=== PATIENT | male | born 1950 | race Caucasian/White ===

== ENCOUNTER 2018-07-01 05:47 | Day surgery (SDC) | payer BC ==
[2018-07-01] MEDS ORDERED: LACTATED RINGERS 1,000 ML IV SCH (06:12)
[2018-07-01] MEDS ORDERED: VERSED ONE ×2 (07:29→07:41)
[2018-07-01] MEDS ORDERED: NEURONTIN ONE (07:30)
[2018-07-01] MEDS ORDERED: MARCAINE-EPI 0.25%-1:200,000 INFILTRATI ONE (07:31)
--- NOTE | 2018-07-01 07:38 | Anesthesia Consultation ---
Anesthesia Consult and Med Hx Date of service: 07/01/18 - Airway Anesthetic Teeth Evaluation: Poor ROM Head & Neck: Adequate Mental/Hyoid Distance: Adequate Mallampati Class: Class II Intubation Access Assessment: Probably Good - Pulmonary Exam CTA: Yes - Cardiac Exam Cardiac Exam: RRR - Pre-Operative Health Status ASA Pre-Surgery Classification: ASA2 Proposed Anesthetic Plan: General - Pulmonary Hx Smoking: Yes (FOR 40YRS; QUIT 2009) - Central Nervous System Hx Psychiatric Problems: No - Other Systems Hx Alcohol Use: Yes ([facility]) Hx Substance Use: No Hx Cancer: No
--- NOTE | 2018-07-01 07:39 | Anesthesia Day of Surgery ---
Anesthesia Day of Surgery - Day of Surgery Patient Examined: Yes Patient H&P Reviewed: Yes Patient is NPO: Yes Beta Blockers: No Cardiac Clearance: No Pulmonary Clearance: No Clarence's Test: N/A
[2018-07-01] MEDS ORDERED: MARCAINE 0.5% INFILTRATI ONE (07:40)
[2018-07-01] MEDS ORDERED: TORADOL IV PRN (07:40)
[2018-07-01] MEDS ORDERED: ZOFRAN IV PRN (07:40)
[2018-07-01] MEDS ORDERED: DILAUDID IV PRN (07:40)
[2018-07-01] MEDS ORDERED: ZEMURON IV ONE (07:41)
[2018-07-01] MEDS ORDERED: XYLOCAINE MPF 2% ONE (07:41)
[2018-07-01] MEDS ORDERED: SUBLIMAZE ONE (07:42)
[2018-07-01] MEDS ORDERED: MARCAINE-EPI 0.5%-1:200,000 INFILTRATI ONE ×2 (07:42→08:25)
[2018-07-01] MEDS ORDERED: DIPRIVAN 10 MG/ML IV ONE (07:42)
[2018-07-01] MEDS ORDERED: ANCEF/STERILE WATER 2 GM/20 ML 2 GM/20 ML SYRINGE IV SCH (08:00)
[2018-07-01] MEDS ORDERED: NEURONTIN PO NR (08:00)
[2018-07-01] MEDS ORDERED: VERSED IV NR (08:00)
[2018-07-01] MEDS ORDERED: NACL 0.9% IR ONE (08:25)
--- NOTE | 2018-07-01 09:18 | Discharge Summary ---
Short Stay Discharge Plan Activity: other (observe x 4 hrs then august d/c if stable and able to void. cl liq today. advance to solid high fiber diet at home in am.) Diet: clear liquids Wound: keep clean and dry (x 5 days. scrotal support x 3 days. ice pack L groin x 6 hrs) Additional Instructions: no lifting over 5 lbs x 3 wks. aleve I po q 6-8 hrs prn for breakkthrough pain. surfak I po q am x 3 Follow up with: KENIA COX MD [Staff Physician] - 7 Days
--- NOTE | 2018-07-01 10:01 | Operative Report ---
PREOPERATIVE DIAGNOSIS: Large visible and palpable left inguinal hernia. POSTOPERATIVE DIAGNOSIS: Large direct left inguinal hernia. PROCEDURE: Open left inguinal hernia repair with mesh. SURGEON: Damian Bowman MD ANESTHESIA: General. ESTIMATED BLOOD LOSS: Minimal. DRAINAGE: No drainage. COMPLICATIONS: None. PROCEDURE IN DETAIL: The patient was taken to the operating room, prepped and draped in usual sterile fashion. Midline incision was made using his landmarks in anterior superior iliac spine and the pubic tubercle. Incision was carried down to the external oblique fascia. External oblique fascia was transected down to the external inguinal ring. Cord was then isolated with a [place] drain. Inspection of the cord revealed a fair amount of fat and a lipoma of the cord, but no indirect sac. Palpation of the floor revealed a complete weakness of the inguinal canal floor consistent with a direct inguinal hernia. A keyhole Marlex mesh was then used to reconstruct the inguinal canal floor. The mesh was tacked inferiorly to the distal Navarro's ligament and pubic tubercle area. Medially, the mesh was secured to the transversalis fascia and laterally to the iliopubic tract. There was also weakness noted above the internal ring. The mesh was continued to be sutured above the internal ring then sutured onto itself reinforcing the entire ring and tissues above the internal ring. The area was then irrigated copiously and dried, checked for hemostasis and noted to be dry. The area was palpated and no other defects or weaknesses noted. The cord was then inlaid over the mesh. All cord structures including the ilioinguinal nerve was noted to be intact. The external oblique fascia was then closed over the cord with the running 3-0 Vicryl suture. Subcutaneous tissues were irrigated and skin closed with kathya. A 0.5% Marcaine with epinephrine was infiltrated over the fascia, subcutaneous and skin for postop pain relief. Ilioinguinal nerve block was also performed. The patient tolerated the procedure well and left the OR in stable condition. JOB# [id number] NORMA/BETSY
[2018-07-01 15:08] VITALS: BP 130/78
== END 2018-07-01 13:25 | disposition home or self-care (01) ==
LOC: OR 05:47
PROVIDERS: ATTEND Surgery
DX: K40.90 Unilateral inguinal hernia, without obstruction or gangrene, not specified as recurrent (principal); Z87.891 Personal history of nicotine dependence; Z79.899 Other long term (current) drug therapy; Z72.89 Other problems related to lifestyle; Z98.890 Other specified postprocedural states
CPT/HCPCS: 49505; C1781; J0690; J1170; J2250; J2704; J3010; J7120